=== PATIENT | male | born 1960 ===

== ENCOUNTER 2023-06-27 04:01 | Day surgery (SDC) | payer OTHER ==
[2023-06-26 09:57] VITALS: BMI 28.3
[2023-06-27] MEDS ORDERED: PROPOFOL 40 ML ONE (12:25)
[2023-06-27] MEDS ORDERED: MIDAZOLAM HCL 2 MG/2 ML SINGLE DOSE VIAL ONE (12:25)
[2023-06-27] MEDS ORDERED: ceFAZolin SODIUM 1 GM VIAL ONE (12:27)
[2023-06-27] MEDS ORDERED: SODIUM CHLORIDE 0.9% P/F 10 ML VIAL IJ ONE (12:27)
[2023-06-27] MEDS ORDERED: METOCLOPRAMIDE HCL INJECTION 10 MG/2 ML VIAL ONE (12:27)
[2023-06-27] MEDS ORDERED: ONDANSETRON 4 MG/2 ML VIAL ONE (12:27)
[2023-06-27] MEDS ORDERED: SEVOFLURANE 250 ML BTL ONE (12:47)
[2023-06-27] MEDS ORDERED: ACETAMINOPHEN INJECTION 100 ML IVPB ONE (12:47)
[2023-06-27] MEDS ORDERED: DEXAMETHASONE SOD PHOSPHATE 4 MG/1 ML VIAL ONE (12:48)
[2023-06-27] MEDS: ceFAZolin SODIUM 1 GM VIAL IVPB ONE (13:15)
[2023-06-27] MEDS ORDERED: GLYCOPYRROLATE 0.2 MG/1 ML VIAL ONE (13:24)
[2023-06-27] MEDS ORDERED: KETOROLAC TROMETHAMINE 30 MG/1 ML VIAL ONE (13:26)
[2023-06-27 13:39] LABS: INR 1.05 (0.83-1.09); PROTHROMBIN TIME (PATIENT) 12.2 SEC (9.7-13.0)
[2023-06-27 13:41] LABS: ACTIVATED PTT 29.9 SECONDS (25.2-36.5)
[2023-06-27] MEDS ORDERED: BACITRACIN ZINC 15 GM TUBE TOPICAL OINTMENT ONE (14:08)
[2023-06-27] MEDS: BACITRACIN ZINC 15 GM TUBE TOPICAL OINTMENT TP ONE (14:08)
[2023-06-27] MEDS ORDERED: BENZOIN/ALOE VERA/STORAX/TOLU 58 ML BOTTLE ONE (14:37)
[2023-06-27] MEDS ORDERED: ONDANSETRON 4 MG/2 ML VIAL IVPUSH PRN (15:31)
[2023-06-27] MEDS ORDERED: oxyCODONE HCL 5 MG TABLET PO PRN (15:31)
[2023-06-27] MEDS ORDERED: LACTATED RINGERS SOLUTION 1,000 ML IV SCH (15:45)
[2023-06-27 16:59] VITALS: RESP 18; TEMP 97
[2023-06-27 18:15] VITALS: BP 129/79; PULSE 81
== END 2023-06-27 18:40 | disposition home or self-care (01) ==
LOC: JASU-SURG 04:01
PROVIDERS: ATTEND Urology
PROC: 0V503ZZ Destruction of Prostate, Percutaneous Approach (ICD-10-PCS; principal; 2023-06-27 13:00)
DX: C61 Malignant neoplasm of prostate (principal)
CPT/HCPCS: 55873; C2618; 36415; 85610; 85730; 86850; 86900; 86901; 94760; C1769; J0131

== ENCOUNTER 2023-07-03 14:47 | Emergency (ER) | payer OTHER ==
[2023-07-03 14:59] VITALS: TEMP 97.8; BMI 28.3
[2023-07-03] MEDS: CEPHALEXIN MONOHYDRATE 500 MG CAPSULE (UD) PO ONE (18:13)
[2023-07-03] MEDS ORDERED: CEPHALEXIN MONOHYDRATE 500 MG CAPSULE (UD) ONE (18:13)
[2023-07-03 18:37] VITALS: BP 152/93; PULSE 72; RESP 18
== END 2023-07-03 19:02 | disposition home or self-care (01) ==
LOC: JER 14:47
DX: T83.091A Other mechanical complication of indwelling urethral catheter, initial encounter (principal); N48.1 Balanitis
CPT/HCPCS: 99283-25